=== PATIENT | female | born 1940 | race Native Hawaiian/Other Pacific Islander ===

== ENCOUNTER 2018-07-31 14:00 | Emergency (ER) | payer OTHER ==
[~2018-07-31] VITALS: Ht 167.6 cm; Wt 81.8 kg
[2018-07-31 14:00] VITALS: BP 178/82; TEMP 97.8
[~2018-07-31 14:00] MED LIST: ABILIFY5 MG PO; ARTIFI TEARS OP; DOCU100C10 PO; DONE5TAB PO; FURO40TA93 PO; GUAI200S10 PO; HALO1TAB3 PO; HALO5INJ3 IM; HALOPERIDOL2 MG PO; LAMICTAL150 MG PO; LIPITOR20 MG PO; LORA2INJ21 INJ; MEMA10TA2 PO; NORCO PO; OLOP0.1S OTIC; OMEPRAZOLE20 MG PO; POTA10CA3 PO; PROZAC10 MG PO; RISP50IN IM; TRAZ100T PO; TRAZ50TA36 PO; ZIPR80CA PO; [UNRECOGNIZED DRUG - OTHER] IV
[2018-07-31 14:48] LABS: PLATELET COUNT 415 K/uL (152-353)
[2018-07-31 14:59] LABS: POTASSIUM 3.9 mmol/L (3.6-5.2)
[2018-07-31] MEDS ORDERED: ARTIFICIA5 OPTH (22:52)
[2018-07-31] MEDS ORDERED: MILK OF MA400 MG/5 M PO (22:53)
[2018-07-31] MEDS ORDERED: TYLENOL325 MG PO (22:55)
[2018-07-31] MEDS ORDERED: ARIPIPRAZOLE15 MG PO (23:02)
[2018-07-31] MEDS ORDERED: MICRO-K10 MEQ PO (23:06)
[2018-07-31] MEDS ORDERED: DONEPEZIL HYDRO10 MG PO (23:07)
[2018-07-31] MEDS ORDERED: N-ACETYL-L-CYS600 MG PO (23:08)
== END 2018-07-31 16:00 | disposition other institution (70) ==
LOC: ED 14:00
PROVIDERS: Emergency Medicine
DX: R46.89 Other symptoms and signs involving appearance and behavior (principal); N39.0 Urinary tract infection, site not specified; Z04.6 Encounter for general psychiatric examination, requested by authority
CPT/HCPCS: 36415; 80053; 81000; 85027; 87077; 87086; 87088; 87186; 99285